=== PATIENT | female | born 1955 | race Caucasian/White ===

== ENCOUNTER → 2017-08-14 | Outpatient (CLI) | payer OTHER ==
--- NOTE | 2017-08-14 09:46 | RADIOLOGY REPORT (SQ) ---
EXAM DESCRIPTION: CT ABD/PELVIS NO ORAL OR IV COMPLETED DATE/TIME: 08/14/2017 9:17 am REASON FOR STUDY: INCREASED ABDOMINAL GIRTH (R19.8), ABN USG (R93.5) COMPARISON: None. TECHNIQUE: CT scan of the abdomen and pelvis performed without intravenous or oral contrast. Images reviewed with lung, soft tissue, and bone windows. Reconstructed coronal and sagittal MPR images revi ewed. All images stored on PACS. All CT scanners at this facility use dose modulation, iterative reconstruction, and/or weight based d osing when appropriate to reduce radiation dose to as low as reasonably achievable (ALARA). [facility]: Dose Right [facility]: CareDose [facility]: Dose Right [facility]: Teradose 4D [facility]: Smart Jaree RADIATION DOSE: CT Rad equipment meets quality standard of care and radiation dose reduction techniq ues were employed. CTDIvol: 8.1 mGy. DLP: 414 mGy-cm.mGy. LIMITATIONS: NO ORAL CONTRAST. NO IV CONTRAST FINDINGS: LOWER CHEST: Small hiatal hernia NON-CONTRASTED LIVER, SPLEEN, ADRENALS: Liver is normal size. There are calcifications in the left l obe liver on axial image 19 and coronal images 35-43. These are abnormal but nonspecific. MRI of th e liver without and with contrast recommended for followup. Spleen is unremarkable. A 2.4 x 2 cm fatty density adrenal nodule is present likely an angio myelolipoma or adenoma left adre nal gland unremarkable. PANCREAS: No masses. No peripancreatic inflammatory changes. GALLBLADDER: No identified stones by CT criteria. No inflammatory changes to suggest cholecystitis. RIGHT KIDNEY AND URETER: No suspicious masses. Assessment limited by lack of IV contrast. No signif icant calcifications. No hydronephrosis or hydroureter. LEFT KIDNEY AND URETER: 6 to 7 mm hyperdense nodule left lower pole kidney likely a small hemorrhagic cyst. Assessment limited by lack of IV contrast. No significant calcifications. No hydronephrosi s or hydroureter. AORTA AND RETROPERITONEUM: No aneurysm. No retroperitoneal masses or adenopathy. Heavily calcified o rigin right and left proximal renal arteries. BOWEL AND PERITONEAL CAVITY: No obvious masses or inflammatory changes. No free fluid. Scattered col onic diverticuli without CT signs of acute diverticulitis APPENDIX: Not well seen, adjacent to the distal ileum PELVIS, BLADDER, AND ABDOMINAL WALL:No abnormal masses. No free fluid. Bladder normal. BONES: Degenerative disc changes L5-S1 OTHER: No other significant finding. IMPRESSION: Incidental finding of calcifications in the left lobe liver. Underlying mass could not be excluded. MRI abdomen without and with contrast recommended. Benign-appearing nodule right adrenal gland 6 to 7 mm left lower pole kidney probable hemorrhagic cyst COMMENT: Quality ID # [id number]: Final reports with documentation of one or more dose reduction techniques (e.g., Automated exposure control, adjustment of the mA and/or kV according to patient size, use of iterative reconstruction technique) TECHNICAL DOCUMENTATION: JOB ID: [id number] [employer]- All Rights Reserved
== END ==
LOC: RAD 08:48
PROVIDERS: ATTEND Family Medicine
DX: R19.8 Other specified symptoms and signs involving the digestive system and abdomen (principal); R93.5 Abnormal findings on diagnostic imaging of other abdominal regions, including retroperitoneum
CPT/HCPCS: 74176

== ENCOUNTER → 2017-08-21 | Outpatient (CLI) | payer OTHER | LOC: RAD 13:39 | PROVIDERS: ATTEND Family Medicine | DX: K76.89 Other specified diseases of liver (principal); E27.9 Disorder of adrenal gland, unspecified; R19.8 Other specified symptoms and signs involving the digestive system and abdomen; R93.5 Abnormal findings on diagnostic imaging of other abdominal regions, including retroperitoneum | CPT/HCPCS: 82565; 74183; A9576 ==